=== PATIENT | female | born 1950 | race Caucasian/White ===

== ENCOUNTER → 2019-08-16 12:01 | Day surgery (SDC) | payer OTHER ==
[~2019-08-16 12:01] MED LIST: Atracurium* 10 MG/ML 10 ML VIAL ONE; Buffered Lidocaine 1% SYRIN* 1 ML/SYRINGE INTRADERM ONE; Bupivacaine 0.5% W/EPI SDV* 30 ML VIAL ONE; Dexamethasone IV* 4 MG/ML 1 ML (4 MG) IV SLOW PU ONE; Dexamethasone IV* 4 MG/ML 1 ML (4 MG) ONE; DiMENhydriNATE IV* 50 MG/ML VIAL IV PUSH PRN; DiMENhydriNATE IV* 50 MG/ML VIAL ONE; EPINEPHRINE 1 MG/ML 1 ML VIAL ONE; Famotidine IV* 10 MG/ML 2 ML (20 mg) ONE; HYDROmorphone INJ1* 1 MG/ML SYRINGE IV PRN; Lactated Ringers 1000 ML Bag* 1,000 ML IV SCH; Lidocaine 2% PF * 5 ML VIAL ONE; Midazolam* 1 MG/ML 5 ML VIAL (5 MG) ONE; Naloxone* 0.4 MG/ML 1 ML VIAL IV PRN; Ondansetron INJ* 2 MG/ML VIAL IV PRN; Ondansetron INJ* 2 MG/ML VIAL ONE; Propofol* 10 MG/ML 20 ML BTL ONE; ROPIVACAINE 5 MG/ML 30 ML BTL (0.5%) ONE; ceFAZolin 2 GM PREMIX in ORs 2 GM/50 ML BAG ONE; fentaNYL* 50 MCG/ML 2 ML VIAL (100 MCG VIAL) IV PRN; fentaNYL* 50 MCG/ML 2 ML VIAL (100 MCG VIAL) ONE; oxyCODONE/Acetamin 5/325 MG* TAB PO PRN
[2019-08-16] MEDS: Famotidine IV* 10 MG/ML 2 ML (20 mg) IV ONE ×2 (13:38→13:39)
[2019-08-16 19:45] VITALS: BP 100/80
--- NOTE | 2019-08-18 05:11 | OP ---
OPERATIVE NOTE: DATE OF OPERATION: 08/16/19 DATE OF : 52 SURGEON: Mckinley Caruso MD ACCOUNTING SUPPORT SPECIALIST: DARIO Arguello A physician senior executive assistant was required for the length of the procedure for assistance with patient positioning, retraction, instrumentation and closure. ANESTHESIOLOGIST: Dr. Mcdonough. ANESTHESIA: General anesthesia, regional interscalene block anesthesia, local anesthesia with Marcaine 0.25% with epinephrine placed about the biceps open incision site. PRE-OP DIAGNOSES: 1. Left shoulder rotator cuff tendon tear, supraspinatus, infraspinatus, massive, retracted, acute on chronic. 2. Left shoulder subacromial bursitis, impingement. 3. Left shoulder acromioclavicular joint osteoarthritis. 4. Possible left shoulder superior labral tear and/or biceps tendinosis. POST-OP DIAGNOSES: 1. Left shoulder rotator cuff tendon tear, supraspinatus, infraspinatus, massive, retracted, acute on chronic. 2. Left shoulder subacromial bursitis, impingement. 3. Left shoulder acromioclavicular joint osteoarthritis. 4. Left shoulder superior labrum tear and proximal biceps tendinosis. OPERATIVE PROCEDURES: 1. Left shoulder arthroscopic partial rotator cuff repair, supraspinatus. 2. Left shoulder arthroscopic subacromial decompression. 3. Left shoulder open proximal biceps tendinosis, subpectoral. ANTIBIOTICS: Ancef 2 g IV. IV FLUIDS: See anesthesia note. COMPLICATIONS: None. SPECIMEN: None. IMPLANTS: Arthrex corkscrew 5.5 mm suture anchor double loaded with suture tape and then Arthrex SwiveLock 5.5 mm suture anchor, also an Arthrex proximal biceps tendinosis button. [id number] TIME: 95 minutes. ESTIMATED BLOOD LOSS: Minimal. INDICATIONS FOR PROCEDURE: The patient is a 68-year-old woman who admits to a long history of pain and weakness and multiple injuries to her left shoulder. She more recently had an injury to the left shoulder on 06/21/19. MRI showed significant rotator cuff tears to the supraspinatus and infraspinatus with retraction. Her muscle belly quality looked reasonably well although small of the supraspinatus. The supraspinatus, however, was noted to be retracted to the level of the glenoid, if not, medial to that and infraspinatus was retracted significantly. This was under appreciated my radiologist per my perspective. We discussed treating the patient non-operatively or operatively. Given the appearance of the patient's supraspinatus, I could not guarantee a rotator cuff repair. I laid out to the patient 3 possible scenarios with surgery. Based on what I would find intraoperatively, the patient would either undergo a rotator cuff repair of the supraspinatus and infraspinatus or a rotator cuff repair of the infraspinatus, but a superior capsule repair or a debridement with no repair or partial repair rotator cuff. We went through these 3 different options. They would be determined by whether or not the supraspinatus and infraspinatus could be repaired to bone. Discussed risks and potential complications of surgery. DESCRIPTION OF PROCEDURE: In preoperative holding, the patient signed a written consent. Operative extremity was marked in the preoperative holding. The patient underwent interscalene nerve block in the preop holding by Anesthesia. The patient was taken back to operating room and placed supine on the operating room table, sedated and intubated. The patient was placed in the lateral decubitus position with the left shoulder up. Axillary roll, all bony prominences padded. Vásquez bag hardened. Left shoulder in appropriate longitudinal traction, 10 pounds. The left shoulder was prepped and draped. Surgical time-out performed. Injected the glenohumeral joint from posterior with 30 cc of normal saline. Made posterior glenohumeral joint portal. I inspected glenohumeral joint. There was no significant high-grade injury to the articular cartilage. No loose bodies. The subscapularis tendon appeared intact. There was an unstable superior labral tear as well as biceps tendinosis. We made an anterior glenohumeral joint portal under direct visualization and brought in the scissors and cut the biceps just off of its origin. There is clearly a significant supraspinatus, infraspinatus rotator cuff tendon tear. I entered the subacromial space from posterior and anterior. There was a surprising amount of bursitic tissue. I spent some time debriding this with an arthroscopic shaver. I could then visualize the rotator cuff tendon well. I created lateral portal through which I did my subacromial bursectomy. I then created posterolateral portal as well under direct visualization. I inspected the torn supraspinatus and infraspinatus tendons. Both of these were retracted all the way to the glenoid. I grasped these and found them to be incredibly thin, poor quality and non-mobile. I debrided superior and inferior to these tendons to clean them up. I placed traction stitches. They were still not mobile at all. I had excellent visibility of the scapular spine and could tell what was supraspinatus and what was infraspinatus. This allowed me also to identify which was teres minor. The teres minor was intact, although when I grasped that tendon, it was of incredibly poor quality tissue. After doing a significant amount of work to mobilize the tendons, I realized that neither of supraspinatus nor the infraspinatus would be fully repairable to bone. Therefore, a complete rotator cuff repair or an infraspinatus repair with superior capsular repair were not treatment options. The patient did have a very thin amount of anterior supraspinatus tendon still intact to bone. I wanted to get any type of improved coverage of the humeral head that is possible to get some type of depressing action on that humeral head. I therefore mobilized this tissue and any type of tissue shift that occurred anteriorly, I will try to undo by performing a rotator cuff repair. I placed a corkscrew anchor in the medial footprint posterior to that intact sliver of rotator cuff. I placed this anchor from a superolateral poke hole. I used an antegrade suture passer to pass horizontal mattress stitches in the tendon. This nicely mobilized the tendon providing more coverage of the humeral head. I then took tape from this medial row anchor and placed in a lateral row SwiveLock. I should state that prior to doing my rotator cuff repair, partial, I did several different steps. I had prepared the rotator cuff humeral footprint with an arthroscopic simon. I had also performed a subacromial decompression. With regards to the subacromial decompression, I did not take down coracoacromial ligament, because I wanted to avoid future anterosuperior humeral escape. However, I did flatten out the undersurface of the acromion using the arthroscopic simon from lateral. After I was done with the rotator cuff repair, partial, I inspected little bit more the acromion and the AC joint. What I found was that the patient had a clear os acromiale present. The os appeared to be particularly anchored to the clavicle. In order to minimize the stabilization in that fragment, I decided not to perform a distal clavicle resection. I just debrided a minimum of synovitic tissue about that joint with an electrocautery device. I removed instruments and fluids from the subacromial space. I closed skin incisions with [id number] 12 stitches using nylon 3-0 suture. I took arm out of traction and converted to a slightly supine position. I made skin incisions longitudinally over the anterior medial upper arm. Dissected down to bicipital groove. Placed retractors. Grabbed the long head of the biceps tendon. Placed 3 stitches using FiberWire, FiberLoop suture. Loaded the button. I previously drilled a hole in the humerus with a Beath pin. Placed my button and flipped it and tied a knot. Used a free needle to place a second knot. We removed excess suture and tendon. Irrigation. Closure with subcutaneous tissue with Vicryl 3-0 suture buried simple stitches and Monocryl 3.0 suture, 4-0 running stitch for the subcuticular layer. Local anesthesia placed. 4x4 and Tegaderm. Other incisions received Xeroform, 4x4s, ABDs, foam tape. Sling and abduction pillow. Cooling unit. The patient was awakened, extubated and transferred to the PACU. DISPOSITION: The patient will be in a sling at all times. She will not start physical therapy for now. Antibiotics for infection prophylaxis. Pain medicine as needed. Follow up in clinic with me in 10 to 14 days postoperatively. [id number]/CPS #: [id number] ENRRIQUED
== END | disposition home or self-care (01) ==
LOC: OR 12:01
PROVIDERS: ATTEND Orthopaedic Surgery
DX: S46.012A Strain of muscle(s) and tendon(s) of the rotator cuff of left shoulder, initial encounter (principal); S43.432A Superior glenoid labrum lesion of left shoulder, initial encounter; M75.42 Impingement syndrome of left shoulder; M75.52 Bursitis of left shoulder; M19.012 Primary osteoarthritis, left shoulder; W54.8XXA Other contact with dog, initial encounter; Y92.73 Farm field as the place of occurrence of the external cause; G89.18 Other acute postprocedural pain
CPT/HCPCS: C1713; C1776; J0690; J1100; J1240; J2250; J2405; J2704; J2795; J3010